=== PATIENT | male | born 1985 | race African-American/Black ===

== ENCOUNTER 2019-04-13 21:28 | Emergency (ER) | payer SELFPAY ==
[~2019-04-13] VITALS: Ht 188 cm; Wt 141.0 kg
[~2019-04-13 21:28] MED LIST: ACET-2161
[2019-04-13] MEDS ORDERED: IBUPROFEN 600MG TABLET PO ONE (22:30)
[2019-04-13] MEDS ORDERED: CYCLOBENZAPRINE 10MG TABLET PO ONE (22:30)
[2019-04-14 00:04] VITALS: BP 164/87
== END 2019-04-14 00:05 | disposition home or self-care (01) ==
LOC: ER 21:28
DX: S16.1XXA Strain of muscle, fascia and tendon at neck level, initial encounter (principal); V43.62XA Car passenger injured in collision with other type car in traffic accident, initial encounter; Y93.89 Activity, other specified; Y92.488 Other paved roadways as the place of occurrence of the external cause
CPT/HCPCS: 99283

== ENCOUNTER 2021-02-05 22:43 | Emergency (ER) | payer SELFPAY ==
[~2021-02-05] VITALS: Ht 182.9 cm; Wt 170.6 kg
[2021-02-05 23:01] VITALS: BP 183/99
[2021-02-06] MEDS ORDERED: IBUP-2030 PO (01:14)
[2021-02-06] MEDS ORDERED: CYCL5TAB PO (01:14)
== END 2021-02-06 02:37 | disposition home or self-care (01) ==
LOC: ER 22:43
DX: S16.1XXA Strain of muscle, fascia and tendon at neck level, initial encounter (principal); S20.213A Contusion of bilateral front wall of thorax, initial encounter; M79.642 Pain in left hand; V49.49XA Driver injured in collision with other motor vehicles in traffic accident, initial encounter; Y93.89 Activity, other specified; Y92.89 Other specified places as the place of occurrence of the external cause; Y99.8 Other external cause status
CPT/HCPCS: 71045; 99283